=== PATIENT | female | born 1975 | race Asian ===

== ENCOUNTER 2017-06-15 10:00 | Emergency (ER) | payer OTHER ==
[~2017-06-15] VITALS: Ht 144.8 cm; Wt 79.4 kg
[2017-06-15 11:38] VITALS: BP 144/92
== END 2017-06-15 11:39 | disposition home or self-care (01) ==
LOC: ED 10:00
DX: K59.03 Drug induced constipation (principal); E11.9 Type 2 diabetes mellitus without complications